=== PATIENT | female | born 1970 | race Caucasian/White ===

== ENCOUNTER 2016-07-17 08:30 | Inpatient (IN) | payer OTHER ==
[2016-07-24] MEDS ORDERED: LR 1,000 ML ONE ×3 (06:57→15:19)
[2016-07-24] MEDS ORDERED: VALIUM ONE (06:57)
[2016-07-24] MEDS ORDERED: KEFZOL 2 GM/D5W 50 ML ONE ×2 (06:57→13:56)
[2016-07-24 07:36] LABS: MANUAL DIFF NEEDED? NO
[2016-07-24 07:42] LABS: BASO% 0.3 % (0.0-0.8); EOS# 0.12 X1000 (0.0-0.7); EOS% 2.1 % (0.0-10.0); HEMATOCRIT 33.9 % (37.0-47.0); HEMOGLOBIN 11.1 g/dL (12.0-16.0); LYMPH# 1.34 X1000 (1.2-3.4); LYMPH% 23.4 % (20.5-51.1); MCH 26.3 PG (27-31); MCHC 32.7 g/dL (33-37); MCV 80.3 FL (81-99); MONO% 8.7 % (1.7-9.3); MPV 11.2 FL (7.4-10.4); NEUT% 65.5 % (42.2-75.2); PLT 302 X1000 (130-400); RBC 4.22 XMIL (4.2-5.4)
[2016-07-24] MEDS ORDERED: PEPCID ONE (07:57)
[2016-07-24 07:59] LABS: AGAP 12; ALBUMIN 3.5 g/dL (3.5-5.0); ALKALINE PHOSPHATASE 74 U/L (32-104); BUN 12 mg/dL (8-22); CHLORIDE 104 mmol/L (98-107); COSMO 281; GOT 15 U/L (10-30); GPT 16 U/L (10-36); SODIUM 141 mmol/L (136-145); TCO2 25 mmol/L (25-35); TOTAL PROTEIN 6.8 g/dL (6.3-8.3)
[2016-07-24] MEDS ORDERED: ROBINUL ONE ×2 (07:59→15:12)
[2016-07-24] MEDS ORDERED: DUONEB (A & A) INH ONE (09:02)
[2016-07-24] MEDS ORDERED: METHYLENE BLUE 1% ONE (09:23)
[2016-07-24] MEDS ORDERED: PREMARIN VAG CREAM ONE (09:23)
[2016-07-24] MEDS ORDERED: SILVER NITRATE APPLICATOR ONE (09:23)
[2016-07-24] MEDS ORDERED: MARCAINE 0.25% PF/EPI 1:200,000 ONE ×2 (09:23→09:32)
[2016-07-24] MEDS ORDERED: METROGEL-VAGINAL 0.75% GEL ONE (09:24)
[2016-07-24 10:46] LABS: URINE MICRO REVIEW NEEDED? NO; URINE SOURCE CATH
[2016-07-24 10:51] LABS: BILIRUBIN URINE NEGATIVE (NEGATIVE); BLOOD URINE SMALL (NEGATIVE); COLOR STRAW; GLUCOSE URINE NEGATIVE (NEGATIVE); LEUKOCYTES URINE NEGATIVE (NEGATIVE); NITRITE URINE NEGATIVE (NEGATIVE); PROTEIN URINE NEGATIVE (NEGATIVE); SP GRAVITY URINE 1.013; TURBIDITY URINE CLEAR (CLEAR); UR EPITHELIAL CELLS <10 /HPF (<10); URINE BACTERIA NEGATIVE /HPF; URINE RBC <10 /HPF (<10); URINE WBC <10 /HPF (<10); UROBILINOGEN URINE NORMAL (NORMAL)
[2016-07-24] MEDS ORDERED: VERSED ONE (13:55)
[2016-07-24] MEDS ORDERED: FENTANYL ONE ×2 (13:55→15:03)
[2016-07-24] MEDS ORDERED: DIPRIVAN 1% ONE (13:55)
[2016-07-24] MEDS ORDERED: CLAVE SECONDARY SET 11953 ONE (13:56)
[2016-07-24] MEDS ORDERED: DULCOLAX PR PRN (14:53)
[2016-07-24] MEDS ORDERED: PHENERGAN IV PRN ×2 (14:53→15:15)
[2016-07-24] MEDS ORDERED: AMBIEN PO PRN (14:53)
[2016-07-24] MEDS ORDERED: SODIUM CHLORIDE 0.9% INJ PRN ×2 (14:53→15:15)
[2016-07-24] MEDS ORDERED: MYLICON PO PRN (14:53)
[2016-07-24] MEDS ORDERED: ZOFRAN ODT PO PRN (14:53)
[2016-07-24] MEDS: DILAUDID ONE ×4 (15:05→15:25)
[2016-07-24] MEDS ORDERED: DILAUDID PCA VIAL ONE (15:11)
[2016-07-24] MEDS ORDERED: NEOSTIGMINE ONE (15:11)
[2016-07-24] MEDS ORDERED: ZOFRAN ONE (15:12)
[2016-07-24] MEDS ORDERED: XYLOCAINE-MPF 2% ONE (15:12)
[2016-07-24] MEDS ORDERED: QUELICIN (DOSE) ONE (15:12)
[2016-07-24] MEDS ORDERED: STERILE WATER INJ. ONE (15:12)
[2016-07-24] MEDS ORDERED: OFIRMEV 1000 MG/ISOTONIC SOLN 100 ML ONE (15:12)
[2016-07-24] MEDS ORDERED: NORCURON ONE (15:12)
[2016-07-24] MEDS ORDERED: LR 3,000 ML ONE (15:13)
[2016-07-24] MEDS ORDERED: DECADRON ONE (15:13)
[2016-07-24] MEDS ORDERED: ZOFRAN IV PRN (15:15)
[2016-07-24] MEDS ORDERED: NARCAN 0.4 MG in LR 1,000 ML IV PRN (15:15)
[2016-07-24] MEDS ORDERED: NARCAN IV PRN (15:15)
[2016-07-24] MEDS ORDERED: DILAUDID PCA VIAL IV PRN (15:15)
[2016-07-24] MEDS ORDERED: BENADRYL IV PRN (15:15)
[2016-07-24] MEDS ORDERED: SODIUM CHLORIDE 0.9% 30 ML ONE (15:46)
[2016-07-24] MEDS ORDERED: MARCAINE 0.25% PF ONE ×2 (15:46→15:47)
[2016-07-24] MEDS ORDERED: EXPAREL 1.3% ONE (15:47)
--- NOTE | 2016-07-24 15:57 | OPERATIVE NOTE ---
PROCEDURE DATE: 07/24/2016 INTRAOPERATIVE CONSULTATION: The patient is a 46-year-old female who was being operated on by Dr. Cobos and Dr. Fried. I received a phone call in my office across town requesting assistance in the OR and spoke with Dr. Fried briefly on the phone. He explained to me that the patient had some adhesions and that the tissue was very thick and they were having difficulty with division of the tissue and that he was concerned. I suggested because of my location across town possibly getting a general surgeon on site to evaluate any issues with the bowel that he expressed concerns about and he stated "no" that they needed me to come assist them. So I left my office and went to the OR. Upon arrival in the OR, Dr. Cobos was in the OR, but Dr. Matta was not present. At that time, she was sitting vaginally and stated that she had just gotten in anteriorly and I said "so you do not really need my help anymore?" and she said "oh no I do need your help." I responded, "I would be more than happy to help" and I suggested starting from above to see where possible injury could be. I scrubbed in and at this time when I looked above laparoscopically, the uterus was noted to be slightly enlarged with approximately a 4 cm fibroid. The round ligaments had been divided and the uteroovarian pedicles have been divided. I did not see any adhesive disease in the cul-de-sac or anteriorly, you could see that she had entered the anterior cul-de-sac vaginally and she was bleeding from the uterus because they had not yet clamped and cauterized and cut the uterine vessels. I suggested that we do that and so she left the vaginal theater and came above laparoscopically. We then used the LigaSure device to clamp and cauterize the uterine vessels on the right and left-hand side. Upon doing this, I explained to the surgeon that since she was already in anteriorly that all we needed to do would be to complete this as a laparoscopic- assisted vaginal hysterectomy and she agreed with this plan. So vaginally, at this time she sat in the chair and began clamping and cutting with the Evelina clamp the uterosacral ligaments. I assisted her with this during that time. This took approximately 45 minutes from this point on. She struggled getting the last portion of the uterosacral ligaments ligated I suggested letting me sit at this time, an when upon doing this, I grasped the uterus we flipped it anteriorly exposing the uterosacral ligaments that were still unsecured. I then left the seat and the surgeon sat back down and clamped the uterosacral ligaments bilaterally and secured these with a Evelina transfixation arrangement. At this point, she still had a moderate amount of bleeding from the vaginal cuff and I suggested we baseball suture the vaginal cuff, which was done in the typical fashion. At this time, I had been in the OR for approximately 1 hour area and she seemed to have good control of the case. Hemostasis was visualized throughout, all she needed to do would be to see resecure the anterior and posterior leaves of the vaginal mucosa and then explore laparoscopically to ensure that hemostasis was indeed confirmed and no other abnormalities were seen. I did not see any other issues from a urogynecology perspective. We did not do a cystoscopy. The surgeon stated that she was no where near any bowel and that she had not had any type of bladder injury. Her urine output in her Kerr catheter, which was placed was clear at this point. I then left the OR, at this point, for her to continue in the surgery.
[2016-07-24] MEDS ORDERED: TORADOL ONE (17:03)
[2016-07-24] MEDS: TYLENOL PO SCH (20:51)
[2016-07-24] MEDS: PERIDEX MT SCH (20:51)
[2016-07-24] MEDS: TEGRETOL PO SCH (20:51)
[2016-07-24] MEDS: COLACE PO SCH (20:52)
[2016-07-24] MEDS ORDERED: ZYPREXA PO SCH (21:00)
[2016-07-24] MEDS ORDERED: TEGRETOL PO SCH (21:00)
[2016-07-25] MEDS: LR 1,000 ML IV SCH ×3 (01:26→10:50)
[2016-07-25] MEDS: TORADOL IV PRN ×2 (01:27→07:27)
[2016-07-25] MEDS: TYLENOL PO SCH ×2 (02:00→09:10)
[2016-07-25 06:14] LABS: MANUAL DIFF NEEDED? NO
[2016-07-25 06:45] LABS: AGAP 9; ALBUMIN 2.8 g/dL (3.5-5.0); ALKALINE PHOSPHATASE 58 U/L (32-104); BUN 6 mg/dL (8-22); CALCIUM 8.3 mg/dL (8.8-10.2); CHLORIDE 108 mmol/L (98-107); COSMO 283; GOT 12 U/L (10-30); GPT 13 U/L (10-36); POTASSIUM 4.5 mmol/L (3.5-5.1); SODIUM 143 mmol/L (136-145); TCO2 26 mmol/L (25-35); TOTAL BILIRUBIN 0.23 mg/dL (0.20-1.00); TOTAL PROTEIN 5.8 g/dL (6.3-8.3)
[2016-07-25 06:49] LABS: BASO% 0.3 % (0.0-0.8); EOS# 0.07 X1000 (0.0-0.7); HEMATOCRIT 28.5 % (37.0-47.0); LYMPH# 1.44 X1000 (1.2-3.4); LYMPH% 20.6 % (20.5-51.1); MCHC 31.6 g/dL (33-37); MCV 82.4 FL (81-99); MONO# 0.64 X1000 (0.11-0.59); MONO% 9.2 % (1.7-9.3); MPV 11.9 FL (7.4-10.4); NEUT% 68.9 % (42.2-75.2); PLT 311 X1000 (130-400); RBC 3.46 XMIL (4.2-5.4)
[2016-07-25 08:31] VITALS: BP 103/61
[2016-07-25] MEDS: TEGRETOL PO SCH (09:10)
[2016-07-25] MEDS: COLACE PO SCH (09:11)
[2016-07-25] MEDS: PERIDEX MT SCH (09:13)
[2016-07-25] MEDS ORDERED: PERCOCET-5 PO PRN (10:20)
[2016-07-25] MEDS ORDERED: MOTRIN PO PRN (10:24)
--- NOTE | 2016-07-25 17:43 | OPERATIVE NOTE ---
PROCEDURE DATE : 07/24/2016 PREOPERATIVE DIAGNOSES: 1. Heavy menstrual bleeding. 2. Fibroid uterus. 3. Iron deficiency anemia. 4. Cervical intraepithelial neoplasia (FERNANDO) 1. PLANNED PROCEDURE: Total Laparoscopic Hysterectomy POSTOPERATIVE DIAGNOSES: 1. Heavy menstrual bleeding. 2. Fibroid uterus. 3. Iron deficiency anemia. 4. Cervical intraepithelial neoplasia (FERNANDO) 1. 5. Status post vaginally assisted laparoscopic hysterectomy. PROCEDURE: Vaginally assisted laparoscopic hysterectomy. SURGEON: Dr. Dana Cobos RETAIL DEPARTMENT MANAGER: Dr. Obi Matta SERVICE INSPECTOR: Urogynecology, Dr. Hutton. ANESTHESIA: General. ESTIMATED BLOOD LOSS: 350 mL. SPECIMENS: Uterus, cervix, bilateral tubes. COMPLICATIONS: None. Procedure converted from total laparoscopic hysterectomy to vaginal dermatology physician assistant laparoscopic hysterectomy. TECHNIQUE: The patient was seen in the preoperative holding area where informed consent was reviewed. Risks, benefits, indications, and alternatives of the procedures were reviewed with the patient. The patient agreed to proceed with planned procedure. Patient was taken to OR #3 and placed under general anesthesia. She was placed in the dorsal lithotomy position using Hal stirrups. The patient was prepped and draped in the normal sterile fashion. A time-out was held. A VCare uterine manipulator was placed over the cervix using 0 Vicryl suture. A Kerr catheter was inserted. Two Allis clamps were placed at the lateral umbilical fold and tented up. A transverse incision was made across the umbilical folds. The 11 mm Optiview trocar was inserted into the abdomen without difficulty. The pneumoperitoneum was established with CO2 gas to a pressure of 15 mmHg. The pelvic anatomy revealed no adhesions to the bowel, to the bladder, to the pelvis, to the small bowel or colon, as patient had had no previous surgeries. Two 5 mm trocars were inserted in the bilateral lower quadrants two fingerbreadths from the anterior superior iliac spines and diagonally to the umbilicus. Steep Trendelenburg position was obtained to facilitate pelvic exposure by mobilizing the colon. No pelvic adhesions were noted. The anatomy was easily visualized and clearly demarcated. The uterus was gently retracted to the right side, and the left fallopian tube was grasped, coagulated, cut, and removed using the LigaSure. The same was done to the right fallopian tube. Good hemostasis was noted. The round ligament and the broad ligament on the left were sequentially grasped,coagulated , and cut using the LigaSure. The same was done on the right. The EBL was negligible. The vesicouterine peritoneum was opened using the Endo Angeline, and the bladder was dissected off the lower uterine segment and the upper vagina. Again, blood loss was negligible. The uterine vessels were skeletonized, identified along the uterus and grasped, coagulated, and cut using the LigaSure. Blood loss was minimal. A 4 cm fundal fibroid was noted. Fibroid did not obstruct view or complicate surgery. The vessels were enlarged as would be expected with fibroid of this size. The anterior vaginal cuff was opened using the L hook. The vaginal tissue was noted to be thickened making it difficult to cut using the L-hook. Blood loss was minimal at this time. The left uterosacral and cardinal ligament complex was detached from the cervix. My dermatology physician assistant, Dr. Matta, at this point was not able to keep camera steady and began to lose focus. Dr. Matta wanted to convert the surgery to the vaginal approach and stated that he would open the posterior cuff easily by direct visualization. I expressed disagreement because I was excited that we were on track and close to finishing to have a successful procedure and that the blood loss at this point was within normal limits for this procedure especially with the fibroid increasing the vascular engorgement of this case. However, because my dermatology physician assistant was uncomfortable and he stated that he would be able to perform the remainder of the procedure more easily vaginally and to keep the operating room comfortable, I agreed to convert to the vaginal approach. Once we changed to the vaginal approach, my dermatology physician assistant decided that he didn't want to operate vaginally and he requested that I do it instead. So at that point, I removed the VCare and there was an attempt to enter the posterior cul-de-sac as the anterior cul-de-sac had already previously been entered. My dermatology physician assistant attempted to palpate the posterior cul-de -sac and became impatient stating that it was too difficult for him to get in posteriorly and instructed the nurse to consult Urogynecologist, Dr. Hutton. I did not see the need for a consultation because the anatomy was clear and the ureters were previously identified and the anterior cuff had already been opened. Dr. Matta said that he was going to leave the room to take a restroom break. Dr. Matta spoke with Dr. Hutton outside of the OR during his break but I was unaware of the details of that conversation. I waited for Dr. Hutton to arrive and for Dr. Matta to return. At that point Dr. Hutton arrived and stated that he wanted to look laparoscopically to visualize where I was in the case. My dermatology physician assistant, who left to go to the restroom, never returned. Dr. Hutton noted that the uterosacral ligament on the dermatology physician assistant side on the right needed to be grasped, coagulated, and cut, which he did laparoscopically. Dr. Hutton and I then agreed to go vaginally to finish the case to remove the uterus. The posterior cul-de-sac was entered vaginally, and serial clamps were made bilaterally, and the cervix and the uterus were delivered. There was minimal bleeding noted on the posterior vaginal cuff and a baseball stitch was then placed over the cuff. Dr. Hutton then left me to complete the case. The vaginal cuff was reapproximated using figure-of-8 sutures of 0 Vicryl. I then went to look laparoscopically. Good hemostasis was noted. The one fallopian tube had been removed vaginally, and so the Endo Catch was placed in the abdomen to remove the second fallopian tube laparoscopically. Irrigation was carried out, and all pedicles were dry. The 5 mm trocars were removed. The gas was allowed to expel, and the 11 mm trocar was then removed. The umbilical fascia was reapproximated with a figure-of-8 suture of 0 Vicryl, and the skin was reapproximated with 4-0 Monocryl. The two 5 mm incisions were reapproximated using Dermabond. The patient tolerated the procedure well. All counts were correct x2. Patient was awakened from anesthesia without any difficulty and was taken to PACU in stable condition. MTDD
== END 2016-07-25 14:15 | disposition home or self-care (01) | DRG 743 ==
LOC: SURHOLD 07-24 02:28 → 4N 07-24 17:37
PROVIDERS: ADMIT Student in an Organized Health Care Education/Training Program; ATTEND Student in an Organized Health Care Education/Training Program
PROC: 0UT7FZZ Resection of Bilateral Fallopian Tubes, Via Natural or Artificial Opening With Percutaneous Endoscopic Assistance (ICD-10-PCS; 2016-07-24)
PROC: 0UT9FZZ Resection of Uterus, Via Natural or Artificial Opening With Percutaneous Endoscopic Assistance (ICD-10-PCS; principal; 2016-07-24 09:22)
PROC: 0UTC7ZZ Resection of Cervix, Via Natural or Artificial Opening (ICD-10-PCS; 2016-07-24 09:22)
DX: D25.9 Leiomyoma of uterus, unspecified (principal); J44.9 Chronic obstructive pulmonary disease, unspecified; M41.9 Scoliosis, unspecified; D50.9 Iron deficiency anemia, unspecified; F17.210 Nicotine dependence, cigarettes, uncomplicated; F31.9 Bipolar disorder, unspecified; N93.9 Abnormal uterine and vaginal bleeding, unspecified; F41.1 Generalized anxiety disorder; N87.0 Mild cervical dysplasia; Z79.899 Other long term (current) drug therapy
CPT/HCPCS: 80053; 81001; 84703; 85025; 86850; 86900; 86901; 88307; 94640; 94761; C9290; J0131; J0330; J0690; J1100; J1170; J1885; J2250; J2405; J2550; J3010; J7120; Q9968; J2710; S0020